=== PATIENT | male | born 1990 | race Caucasian/White ===

== ENCOUNTER 2016-09-18 14:54 | Emergency (ER) | payer SELFPAY ==
[~2016-09-18] VITALS: Ht 172.7 cm; Wt 61.5 kg
[~2016-09-18 14:54] MED LIST: PENI-82 PO
[2016-09-18 15:06] VITALS: BP 118/74; PULSE 81; TEMP 36.7; O2SAT 95; Ht 172.7 cm; Wt 61.5 kg
[2016-09-18] MEDS ORDERED: SULF800T23 PO (15:45)
[2016-09-18] MEDS ORDERED: AMOX875T PO (15:45)
[2016-09-18] MEDS ORDERED: ULT/50 PO (15:45)
--- NOTE | 2016-09-18 23:27 | EMERGENCY ROOM VISIT NOTE ---
History First contact with patient: 15:21 Chief Complaint: EAR PAIN Stated Complaint: GIANT LUMP BEHIND EAR, EARLOBE SWOLLEN WITH FLUID History of Present Illness The patient is a 26 year old male who presents to the Emergency Room with complaints of painful lump behind his left ear lobe. The patient has had several episodes like this in the past, stating that they will often enlarge significantly, break open, and then improved. The patient has a history of hidradenitis with nearly identical symptoms behind his right ear in the past. The patient required surgery to remove cysts behind his right ear due to the frequency of infection. The patient feels like he has an infection today. He is also complaining of pain of his left earlobe. He has not had fever or chills. He does not have injury or trauma. The ear canal itself is without discomfort. He rates his discomfort an 8/10. Review of Systems More than 10 systems were reviewed and otherwise negative with the exception of history of present illness. Past Medical/Surgical History Medical Problems: (1) Sialadenitis Family History Patient reports no known family medical history. Social History Smoking Status: Current Every Day Smoker Alcohol Use: none Drug Use: none Marital Status: single Housing Status: lives with family Occupation Status: employed Current/Historical Medications Scheduled Amoxicillin & Pot Clavulanate (Augmentin 875-125 mg), 1 TAB PO BID Sulfa/Trimethoprim (Bactrim Ds 800MG/160MG), 1 TAB PO BID Tramadol Hcl (Ultram), 50 MG PO Q8H Allergies Coded Allergies: BEE STING (Verified Allergy, Unknown, ANAPHYLAXIS, 09/18/16) Physical Exam Vital Signs Date Time Temp Pulse Resp B/P Pulse Ox O2 Delivery O2 Flow Rate FiO2 09/18/16 15:06 36.7 81 18 118/74 95 Room Air Pain Rating (0-10): 2.0 Physical Exam VITALS: Vitals are noted on the nurse's note and reviewed by myself. Vital signs stable. GENERAL: Well-developed, well-nourished, white male, who is in no acute distress and resting comfortably. Patient is cooperative with the examination. HEAD: Normocephalic atraumatic. EARS: Right external ear and canal are normal. Right TM is pearly. Left external ear is with an ovoid 2 x 1 cm fluctuant appearing abscess directly behind the ear as well as a small area of tenderness and fluctuance within the left earlobe itself. No mastoid tenderness bilateral. Left TM is pearly and appears normal. EYES: Pupils equal round and reactive to light and accommodation. Conjunctivae without injection, sclerae without icterus. Extraocular movements intact. MOUTH: Mucous membranes moist. Tonsils are not enlarged. Pharynx without erythema, blood, or exudate. Uvula midline. Airway patent. NECK: Supple without nuchal rigidity. No lymphadenopathy. No thyromegaly. Cervical spine is nontender. HEART: Regular rate and rhythm without murmurs gallops or rubs. LUNGS: Clear to auscultation bilaterally without wheezes, rales or rhonchi. No retractions or accessory muscle use. Medical Decision & Procedures Procedure I examined the patient. Verbal consent was obtained to perform the procedure. After saline and Betadine cleansing and ethyl chloride anesthesia, the abscess behind the left ear was incised with a 16-gauge needle. A large amount of purulent material was released with more expressed by pressure. A swab was obtained for culture. The abscess cavity was further probed with a needle class b driver and the deep pocket expressed. The abscess cavity was then copiously irrigated with sterile saline under pressure. The abscess within the left earlobe was incised with a 16-gauge needle. A small amount of purulent material was released with more expressed by pressure. The patient tolerated the procedure well. ED Course Physical exam and history were performed. Nursing notes and EMR were reviewed. Patient appears to have an abscess behind the left ear and of the left earlobe. These are very close in proximity, not even 1 cm apart. The patient has had several symptoms of this in the past. I discussed options of care with the patient, and elected to perform incision and drainage as above. The patient ultimately tolerated the procedure well and culture was sent to the lab. The patient will be started on Augmentin and Bactrim for his symptoms. He has seen a surgeon in the past, and I recommended that he contact them in the morning, as he will likely have recurrence of these abscesses. The patient was otherwise invited back to the ER with any new, worsening, or concerning symptoms. He voiced understanding and rated his discomfort a 3/10 at the time of departure. The chart was completed utilizing [employer] Voice Recognition Software. Grammatical errors, random word insertions, pronoun errors, and incomplete sentences are an occasional consequence of this system due to software limitations, ambient noise, and hardware issues. Any formal questions or concerns about the content, text, or information contained within the body of this dictation should be directly addressed to the provider for clarification. . Medical Decision Differential diagnosis: Etiologies such as cellulitis, abscess, MRSA infection, DVT, necrotizing fasciitis, dermatitis, drug eruption, as well as others were entertained.. Impression Primary Impression: Abscess of left earlobe Departure Information Dispostion Home / Self-Care Condition GOOD Prescriptions Tramadol Hcl (ULTRAM) 50 Mg Tab 50 MG PO Q8H for 3 Days, #9 TAB Prov: Napoleon Nugent PA-C 09/18/16 Sulfa/Trimethoprim (Bactrim Ds 800MG/160MG) Tab 1 TAB PO BID for 10 Days, #20 TAB Prov: Napoleon Nugent PA-C 09/18/16 Amoxicillin & Pot Clavulanate (Augmentin 875-125 mg) 1 Tab Tab 1 TAB PO BID for 10 Days, #20 TAB Prov: Napoleon Nugent PA-C 09/18/16 Forms WORK / SCHOOL INSTRUCTIONS, HOME CARE DOCUMENTATION FORM, IMPORTANT VISIT INFORMATION Patient Instructions My [facility] Additional Instructions You were seen and evaluated today on an emergency basis only. This is not a substitute for, or an effort to provide, complete comprehensive medical care. It is not possible to recognize and treat all injuries or illnesses in a single emergency department visit. For this reason it is recommended that you followup with your surgeon by telephone on Wednesday to arrange a follow-up appointment. You may need removal of your cysts for definitive care. For baseline pain relief you may alternate ibuprofen and acetaminophen every 4 hours for pain control. Take 600 mg ibuprofen (Advil) and then 4 hours later take 1000 mg acetaminophen (Tylenol). Do not take more than 3000 mg acetaminophen in a single day. Take tramadol 50 mg every 8 hours as needed for breakthrough pain. Do not drink or drive on this medication. Amoxicillin Clavulanate (Augmentin) 875mg: Take one pill twice daily for 10 days for your infection. All antibiotics can cause diarrhea. If this occurs and you feel worse or it does not resolve in 1-2 days follow up with your doctor or return to the Emergency Department as this could be signs of serious underlying problems. Any medication can cause an allergic reaction, stop the pills immediately and return to the ER for rash, hives, breathing difficulties, or swelling. Trimethoprim-Sulfamethoxazole(Bactrim DS): Take one pill twice daily for 10 days for your infection. All antibiotics can cause diarrhea. If this occurs and you feel worse or it does not resolve in 1-2 days follow up with your doctor or return to the Emergency Department as this could be signs of serious underlying problems. Any medication can cause an allergic reaction, stop the pills immediately and return to the ER for rash, hives, breathing difficulties, or swelling. You are welcome to return to the emergency department anytime with new, worsening, or concerning symptoms.
== END 2016-09-18 16:00 | disposition home or self-care (01) ==
LOC: C.EDB 14:55 → C.EDD 16:00
DX: H60.02 Abscess of left external ear (principal); F17.200 Nicotine dependence, unspecified, uncomplicated; Z79.899 Other long term (current) drug therapy; Z91.030 Bee allergy status

== ENCOUNTER 2017-06-25 10:02 | Emergency (ER) | payer SELFPAY ==
[~2017-06-25] VITALS: Ht 172.7 cm; Wt 65.9 kg
[2017-06-25 10:18] VITALS: TEMP 36.8; Ht 172.7 cm; Wt 65.9 kg
[2017-06-25 11:04] LABS: BASO % 0.3 %; BASO ABS # 0.02 K/uL (0-0.2); EOS % 1.8 %; EOS ABS # 0.13 K/uL (0-0.5); HEMATOCRIT 43.7 % (42-52); HEMOGLOBIN 15.5 g/dL (14.0-18.0); IG# 0.01 K/uL (0.00-0.02); LYMPH % 45.3 %; LYMPH ABS # 3.19 K/uL (1.2-3.4); MEAN CELL VOLUME 91.4 fL (80-100); MEAN CORPUSCULAR HEMOGLOBIN 32.4 pg (25-34); MEAN CORPUSCULAR HGB CONC 35.5 g/dl (32-36); MEAN PLATELET VOLUME 9.8 fL (7.4-10.4); MONO % 8.1 %; MONO ABS # 0.57 K/uL (0.11-0.59); NEUT % 44.4 %; NEUT ABS # 3.12 K/uL (1.4-6.5); PLATELET COUNT 209 K/uL (130-400); RED CELL DISTRIBUTION WIDTH CV 13.5 % (11.5-14.5); RED CELL DISTRIBUTION WIDTH SD 45.4 fL (36.4-46.3); WHITE BLOOD COUNT 7.04 K/uL (4.8-10.8)
[2017-06-25 11:20] LABS: ALKALINE PHOSPHATASE 112 U/L (45-117); ALT/SGPT 23 U/L (12-78); BLOOD UREA NITROGEN 10 mg/dl (7-18); CALCIUM 9.3 mg/dl (8.5-10.1); CARBON DIOXIDE 31 mmol/L (21-32); GLUCOSE 71 mg/dl (70-99); TOTAL PROTEIN 8.9 gm/dl (6.4-8.2)
[2017-06-25 11:23] LABS: POTASSIUM 4.5 mmol/L (3.5-5.1); SODIUM 134 mmol/L (136-145)
[2017-06-25 11:28] LABS: AST/SGOT 14 U/L (15-37)
[2017-06-25 11:33] LABS: CREATININE 0.85 mg/dl (0.60-1.40)
--- NOTE | 2017-06-25 12:12 | DIAGNOSTIC IMAGING REPORT ---
(TESTICULAR) SCROTUM-CONT CLINICAL HISTORY: 26 years-old Male with just below L scrotum mild erythema and induration . Acute left scrotal swelling COMPARISON STUDY: Pelvis CT 11/05/2015 TECHNIQUE: Real-time, grayscale, and color Doppler sonography of the testes and scrotum is performed. Images are reviewed in the transverse and longitudinal planes. FINDINGS: RIGHT HEMISCROTUM: The right testis measures 4.6 x 1.7 x 2.9 cm and the parenchyma appears unremarkable. No intratesticular mass is seen. Normal-appearing arterial inflow is present within the right testicle. The right epididymal head appears normal. No varicocele or hydrocele is identified. LEFT HEMISCROTUM: The left testis measures 4.3 x 2.2 x 3.1 cm and the parenchyma appears unremarkable. No intratesticular mass is seen. Normal-appearing arterial inflow is present within the left testicle. The left epididymal head appears normal. No varicocele or hydrocele is identified. Within the left lateral aspect of the scrotum there is a mildly complex hypoechoic area measuring up to 1.0 cm with additional hypoechoic area noted posterior to the left scrotum measuring up to 1.1 cm. Area of increased vascularity noted within this distribution. IMPRESSION: 1. Unremarkable sonographic appearance of the bilateral testicles without evidence of torsion or mass. 2. Focal complex areas of decreased echogenicity are seen within the left scrotal wall as above measuring up to 1.1 cm demonstrating increased vascularity suggesting phlegmon or developing abscess. Follow-up recommended. No large drainable fluid collections identified. The above report was generated using voice recognition software. It may contain grammatical, syntax or spelling errors. Electronically signed by: Julio Cleaning M.D. 06/25/2017 12:11 PM Dictated Date/Time: 06/25/2017 12:01 PM
[2017-06-25] MEDS ORDERED: SULF800T23 PO (12:42)
[2017-06-25] MEDS ORDERED: CEPH500C PO (12:42)
[2017-06-25] MEDS ORDERED: CEPHALEXIN MONOHYDRATE 250 MG CAP PO ONE (12:45)
[2017-06-25] MEDS ORDERED: SULFAMETHOXAZOLE/TRIMETHOPRIM DS 800/160MG TAB PO ONE (12:45)
[2017-06-25 13:04] VITALS: BP 122/80; PULSE 83; O2SAT 96
--- NOTE | 2017-06-25 14:30 | EMERGENCY ROOM VISIT NOTE ---
History Report prepared by Marcos: Luis Casillas Under the Supervision of: Dr. Tian Onofre D.O. First contact with patient: 10:19 Chief Complaint: EAR PAIN Stated Complaint: SEVERE EAR INFECTION, CYST ON TESTICLE History of Present Illness The patient is a 26 year old male who presents to the Emergency Room with complaints of constant, severe, left ear pain beginning 4 days ago. The patient states he has been trying to use home remedies for his pain, but they are not working. He reports he is also experiencing testicular pain where he had a cyst removed one year ago. The patient notes the cyst is back and will fill up and then pop. He states it has been causing his legs to chafe and continually pop the cyst. The patient reports when he gets an erection, it pulls his skin and causes it to worsen. He notes the testicle itself does not hurt, it is just the cyst. The patient denies cough, runny nose, fevers, vomiting, sorethroat, and urinary symptoms. Source of History: patient Onset: four days ago Position: ear (left) Symptom Intensity: severe Timing: constant Associated Symptoms: No fevers, No sorethroat, No cough, No vomiting, No urinary symptoms Note: Associated symptoms: cyst on his testicles Denies: runny nose Review of Systems See HPI for pertinent positives & negatives. A total of 10 systems reviewed and were otherwise negative. Past Medical & Surgical Medical Problems: (1) Sialadenitis Family History Patient reports no known family medical history. Social History Smoking Status: Current Every Day Smoker Alcohol Use: none Drug Use: none Marital Status: single Housing Status: lives with family Occupation Status: employed Current/Historical Medications Scheduled Cephalexin Monohydrate (Keflex), 500 MG PO TID Sulfamethoxazole-Trimethoprim (Bactrim Ds 800MG/160MG), 1 TAB PO BID Allergies Coded Allergies: BEE STING (Verified Allergy, Unknown, ANAPHYLAXIS, 06/25/17) Physical Exam Vital Signs Date Time Temp Pulse Resp B/P (MAP) Pulse Ox O2 Delivery O2 Flow Rate FiO2 06/25/17 13:04 83 18 122/80 96 06/25/17 11:22 103 18 129/79 99 Room Air 06/25/17 10:18 36.8 106 20 115/75 98 Room Air Physical Exam GENERAL: Sitting up in bed, alert, well appearing, well nourished, no distress, non-toxic EYE EXAM: normal conjunctiva. OROPHARYNX: no exudate, no erythema, lips, buccal mucosa, and tongue normal and mucous membranes are moist NECK: supple, no nuchal rigidity, no adenopathy, non-tender EARS: TMs clear bilaterally. LUNGS: Clear to auscultation. Normal chest wall mechanics HEART: Tachycardic rate. no murmurs, S1 normal and S2 normal ABDOMEN: abdomen soft, non-tender, normo-active bowel sounds, no masses, no rebound or guarding. BACK: Back is symmetrical on inspection and there is no deformity, no midline tenderness, no CVA tenderness. : Normal external genitalia. No testicular tenderness or redness. No penial discharge. 2x1 cm abscess which is draining with mild fullness and fluctuantes with erythema and white purulent discharge just posterior to the scrotum prior to the gluteal folds. SKIN: no rashes and no bruising UPPER EXTREMITIES: upper extremities are grossly normal. LOWER EXTREMITIES: No pitting edema. NEURO EXAM: Normal sensorium, cranial nerves II-XII grossly intact, normal speech, no gross weakness of arms, no gross weakness of legs. Medical Decision & Procedures ER Provider Diagnostic Interpretation: Radiology results as stated below per my review and the radiologist's interpretation: (TESTICULAR) SCROTUM-CONT CLINICAL HISTORY: 26 years-old Male with just below L scrotum mild erythema and induration . Acute left scrotal swelling COMPARISON STUDY: Pelvis CT 11/05/2015 TECHNIQUE: Real-time, grayscale, and color Doppler sonography of the testes and scrotum is performed. Images are reviewed in the transverse and longitudinal planes. FINDINGS: RIGHT HEMISCROTUM: The right testis measures 4.6 x 1.7 x 2.9 cm and the parenchyma appears unremarkable. No intratesticular mass is seen. Normal-appearing arterial inflow is present within the right testicle. The right epididymal head appears normal. No varicocele or hydrocele is identified. LEFT HEMISCROTUM: The left testis measures 4.3 x 2.2 x 3.1 cm and the parenchyma appears unremarkable. No intratesticular mass is seen. Normal-appearing arterial inflow is present within the left testicle. The left epididymal head appears normal. No varicocele or hydrocele is identified. Within the left lateral aspect of the scrotum there is a mildly complex hypoechoic area measuring up to 1.0 cm with additional hypoechoic area noted posterior to the left scrotum measuring up to 1.1 cm. Area of increased vascularity noted within this distribution. IMPRESSION: 1. Unremarkable sonographic appearance of the bilateral testicles without evidence of torsion or mass. 2. Focal complex areas of decreased echogenicity are seen within the left scrotal wall as above measuring up to 1.1 cm demonstrating increased vascularity suggesting phlegmon or developing abscess. Follow-up recommended. No large drainable fluid collections identified. The above report was generated using voice recognition software. It may contain grammatical, syntax or spelling errors. Electronically signed by: Julio Cleaning M.D. 06/25/2017 12:11 PM Dictated Date/Time: 06/25/2017 12:01 PM Laboratory Results 06/25/17 10:40 Red Blood Count 4.78, Mean Corpuscular Volume 91.4, Mean Corpuscular Hemoglobin 32.4, Mean Corpuscular Hemoglobin Concent 35.5, Mean Platelet Volume 9.8, Neutrophils (%) (Auto) 44.4, Lymphocytes (%) (Auto) 45.3, Monocytes (%) (Auto) 8.1, Eosinophils (%) (Auto) 1.8, Basophils (%) (Auto) 0.3, Neutrophils # (Auto) 3.12, Lymphocytes # (Auto) 3.19, Monocytes # (Auto) 0.57, Eosinophils # (Auto) 0.13, Basophils # (Auto) 0.02 06/25/17 10:40 Test 06/25/17 10:40 White Blood Count 7.04 K/uL (4.8-10.8) Red Blood Count 4.78 M/uL (4.7-6.1) Hemoglobin 15.5 g/dL (14.0-18.0) Hematocrit 43.7 % (42-52) Mean Corpuscular Volume 91.4 fL (80-100) Mean Corpuscular Hemoglobin 32.4 pg (25-34) Mean Corpuscular Hemoglobin Concent 35.5 g/dl (32-36) Platelet Count 209 K/uL (130-400) Mean Platelet Volume 9.8 fL (7.4-10.4) Neutrophils (%) (Auto) 44.4 % Lymphocytes (%) (Auto) 45.3 % Monocytes (%) (Auto) 8.1 % Eosinophils (%) (Auto) 1.8 % Basophils (%) (Auto) 0.3 % Neutrophils # (Auto) 3.12 K/uL (1.4-6.5) Lymphocytes # (Auto) 3.19 K/uL (1.2-3.4) Monocytes # (Auto) 0.57 K/uL (0.11-0.59) Eosinophils # (Auto) 0.13 K/uL (0-0.5) Basophils # (Auto) 0.02 K/uL (0-0.2) RDW Standard Deviation 45.4 fL (36.4-46.3) RDW Coefficient of Variation 13.5 % (11.5-14.5) Immature Granulocyte % (Auto) 0.1 % Immature Granulocyte # (Auto) 0.01 K/uL (0.00-0.02) Urine Color YELLOW Urine Appearance CLEAR (CLEAR) Urine pH 5.0 (4.5-7.5) Urine Specific Addison 1.018 (1.000-1.030) Urine Protein NEG (NEG) Urine Glucose (UA) NEG (NEG) Urine Ketones NEG (NEG) Urine Occult Blood NEG (NEG) Urine Nitrite NEG (NEG) Urine Bilirubin NEG (NEG) Urine Urobilinogen NEG (NEG) Urine Leukocyte Esterase NEG (NEG) Anion Gap 5.0 mmol/L (3-11) Est Creatinine Clear Calc Drug Dose 122.8 ml/min Estimated GFR () 139.4 Estimated GFR (Non- 120.3 BUN/Creatinine Ratio 11.7 (10-20) Calcium Level 9.3 mg/dl (8.5-10.1) Total Bilirubin 0.2 mg/dl (0.2-1) Direct Bilirubin < 0.1 mg/dl (0-0.2) Aspartate Amino Transf (AST/SGOT) 14 U/L (15-37) Alanine Aminotransferase (ALT/SGPT) 23 U/L (12-78) Alkaline Phosphatase 112 U/L (45-117) Total Protein 8.9 gm/dl (6.4-8.2) Albumin 4.0 gm/dl (3.4-5.0) Laboratory results per my review. Medications Administered Medications (Trade) Dose Ordered Sig/Kolby Route Start Time Stop Time Status Last Admin Dose Admin Cephalexin Monohydrate (Keflex Cap) 500 mg NOW ONCE PO 06/25/17 12:45 06/25/17 12:46 DC 06/25/17 12:52 500 MG Trimethoprim/ Sulfamethoxazole (Septra Ds 800/ 160MG Tab) 1 tab NOW ONCE PO 06/25/17 12:45 06/25/17 12:46 DC 06/25/17 12:52 1 TAB ED Course ED COURSE: Vital signs were reviewed and showed a tachycardic heart rate. The patients medical record was reviewed The above diagnostic studies were performed and reviewed. ED treatments and interventions as stated above. 1023: The patient was evaluated in room B08. A complete history and physical examination was performed. 1232: Upon reevaluation, the patient is resting comfortably. I discussed my findings with the patient and he understands and agrees with the treatment plan. He will be discharged after receiving medication. 1245: Ordered Trimethoprim/Sulfamethoxazole 1 tab PO, Keflex Cap 500 mg PO Based on the patients age, coexisting illnesses, exam and lab findings the decision to treat as an outpatient was made. The patient remained stable while under my care. The patient appeared well at the time of discharge. Medical Decision Differential diagnoses includes but is not limited to gastritis, peptic ulcer disease, GERD, gallbladder disease, pancreatitis, small bowel obstruction, acute coronary syndrome, pericarditis, ischemic bowel, irritable bowel disease, irritable bowel syndrome, appendicitis, diverticulitis, malignancy, hernia, urinary tract infection, torsion, perforation, trauma, infectious. Patient is a 26-year-old male who presents to ER for 2 complaints. His initial complaint is left ear pain. Bilateral TMs clear. He also complains of pain just inferior to his scrotum. On exam he does have a draining abscess. No fevers. He admits that he gets these fairly regularly. He has another area of fluctuance/drainage which has resolved on his left thigh. Labs show no significant leukocytosis. BMP all LFTs and bilirubin was unremarkable. UA was negative. Ultrasound confirms findings. Patient was placed on Bactrim and Keflex. He was discharged to follow-up with general surgery as an outpatient for his recurrent abscesses. He was given strict instructions to return for any worsening of his symptoms or anything to suggest possible worsening infection. Discussed with Pt concerning signs and symptoms to watch out for. Pt was instructed to follow up with their PCP and discussed with the patient their option to return to the ED at anytime for persistent or worsening symptoms. The appropriate anticipatory guidance and out-patient management, including indications for return to the emergency department, were explained at length to the patient and understood. Medication Reconcilliation Current Medication List: was personally reviewed by me Blood Pressure Screening Patient's blood pressure: Normal blood pressure Blood pressure disposition: Did not require urgent referral Impression Primary Impression: Abscess Scribe Attestation The scribe's documentation has been prepared under my direction and personally reviewed by me in its entirety. I confirm that the note above accurately reflects all work, treatment, procedures, and medical decision making performed by me. Departure Information Dispostion Home / Self-Care Prescriptions Cephalexin Monohydrate (Keflex) 500 Mg Cap 500 MG PO TID for 10 Days, #30 CAP Prov: Tian Onofre, DO 06/25/17 Sulfamethoxazole-Trimethoprim (Bactrim Ds 800MG/160MG) 1 Tab Tab 1 TAB PO BID, #20 TAB Prov: Tian Onofre, DO 06/25/17 Referrals No Doctor, Assigned (PCP) Forms HOME CARE DOCUMENTATION FORM, IMPORTANT VISIT INFORMATION, WORK / SCHOOL INSTRUCTIONS Patient Instructions Drainage Abscess, My [facility] Additional Instructions Please follow up with your primary care doctor with in the next 24 hours. Any worsening of your symptoms, please return to the ED immediately. This includes any fevers greater than 100.4, worsening pain, chest pain, shortness breath, persistent nausea, vomiting, unable to eat or drink, or any other concerning signs or symptoms from your standpoint. Please follow up with general surgery within the next 3 days. If you have any pain, redness or swelling within the scrotum or at the location of the abscess site which is worsening please return immediately to the ER. Please keep warm soaks/compresses this site as it continues to drain. Please take antibiotics as prescribed.
== END 2017-06-25 13:19 | disposition home or self-care (01) ==
LOC: C.EDB 10:04
DX: N45.4 Abscess of epididymis or testis (principal); H92.02 Otalgia, left ear; F17.200 Nicotine dependence, unspecified, uncomplicated

== ENCOUNTER 2017-08-19 16:40 | Emergency (ER) | payer SELFPAY ==
[~2017-08-19] VITALS: Ht 172.7 cm; Wt 61.0 kg
[2017-08-19 16:45] VITALS: TEMP 36.8; Ht 172.7 cm; Wt 61.0 kg
--- NOTE | 2017-08-19 17:27 | EMERGENCY ROOM VISIT NOTE ---
History First contact with patient: 17:10 Chief Complaint: THROAT PAIN/INJURY Stated Complaint: GIANT LUMP ON THROAT History of Present Illness The patient is a 26 year old male who presents to the Emergency Room with complaints of a possible abscess in the left side of the neck. The patient states he noticed a small lump approximately 3 weeks ago. He states overnight, the lump seemed to double or triple in size. He states he is having difficulty sleeping and eating. The patient has been taking ice and ibuprofen without improvement in his symptoms. He does have a history of sebaceous cysts over his body, and has had them surgically removed. He describes a chronic dental pain and dental caries for many years, and is a current smoker. The patient denies any obvious changes in his dental pain or experiencing any pain in one specific location within his mouth since this began. He denies any fever, but does report some chills. He denies any drainage from the wound. He denies any chest pain or difficulty breathing. Review of Systems A complete 10 point review of systems was reviewed with the patient with pertinent positives and negatives as per history of present illness. All else were negative. Past Medical/Surgical History Medical Problems: (1) Sialadenitis Family History Patient reports no known family medical history. Social History Smoking Status: Current Every Day Smoker Alcohol Use: none Drug Use: none Marital Status: single Housing Status: lives with family Occupation Status: employed Current/Historical Medications Scheduled Cephalexin Monohydrate (Keflex), 500 MG PO QID Sulfa/Trimethoprim (Bactrim Ds 800MG/160MG), 1 TAB PO BID Physical Exam Vital Signs Date Time Temp Pulse Resp B/P (MAP) Pulse Ox O2 Delivery O2 Flow Rate FiO2 08/19/17 19:37 100 16 112/81 99 Room Air 08/19/17 18:54 96 16 132/83 98 Room Air 08/19/17 17:37 108 18 122/82 97 Room Air 08/19/17 16:45 36.8 115 20 130/81 96 Room Air 08/19/17 16:45 96 Room Air Physical Exam VITALS: Vitals are noted on the nurse's note and reviewed by myself. Vital signs stable. GENERAL: This is a 26 year old white male, in no acute distress, nondiaphoretic , well-developed well-nourished. SKIN: The skin was without rashes, erythema, edema, or bruising. There is no tenting of the skin. Capillary reflex less than 2 seconds. HEAD: Normocephalic atraumatic. EARS: External auditory canals clear, tympanic membranes pearly soni without erythema or effusion bilaterally. EYES: Pupils equal round and reactive to light and accommodation. Conjunctivae without injection, sclerae without icterus. Extraocular movements intact. NOSE: Patent, turbinates without inflammation or discharge. No sinus tenderness. MOUTH: Mucous membranes moist. Tonsils are not enlarged. Pharynx without erythema or exudate. Uvula midline. Airway patent. Tongue does not deviate. Very poor dentition with multiple dental caries. NECK: Supple without nuchal rigidity. Mass noted in the left submandibular area. Uncertain if this is a lymphadenopathy or abscess. No thyromegaly. Cervical spine is nontender. No JVD. HEART: Regular rate and rhythm without murmurs gallops or rubs. LUNGS: Clear to auscultation bilaterally without wheezes, rales or rhonchi. No dullness to percussion. No retractions or accessory muscle use. MUSCULOSKELETAL: No muscle atrophy, erythema, or edema noted. Full range of motion without joint tenderness in all extremities. No tenderness to palpation. Normal gait. Strength 5/5 throughout. NEURO: Patient was alert and oriented to person place and time. Normal sensation to light and sharp touch. Deep tendon reflexes 2+ throughout. No focal neurological deficits. Medical Decision & Procedures ER Provider Diagnostic Interpretation: SOFT TISSUE NECK WITH CLINICAL HISTORY: 26 years-old Male presenting with possible abscess, left submandibular area. TECHNIQUE: Multidetector CT of the neck was performed after the administration of intravenous contrast. IV contrast: 94 mL of Optiray 320. A dose lowering technique was used consistent with the principles of ALARA (as low as reasonably achievable). COMPARISON: None. CT DOSE (mGy.cm): The estimated cumulative dose is 375.13 mGy.cm. FINDINGS: Manager Drug topogram: Unremarkable. Aerated secretions in the nasal cavity and nasopharynx. Prominence of adenoidal lymphoid tissue. Mild mucosal thickening in the left maxillary sinus. Ostiomeatal units and nasofrontal ethmoidal recesses patent. Rightward nasal septal deviation with bony spurring. Perforation of the anterior nasal septum. Extensive dental caries at the right mandibular first and second molar. Periapical lucency noted at the right mandibular first and second molar. Dental caries also suggested in the bilateral third mandibular molars. No significant inflammatory change along the buccal mucosa. No evidence of an odontogenic abscess. No cervical lymphadenopathy. Patent vasculature. Lung apices clear. Osseous structures normal. Limited intracranial evaluation within normal limits. IMPRESSION: 1. Perforation of the nasal septum could imply chronic nasal ingestion of medication. 2. Extensive aerated secretions in the nasal cavity and nasopharynx. 3. Extensive dental caries and periapical lucencies/abscesses at the right mandibular first and second molars. Dental caries also noted elsewhere. No evidence of odontogenic abscess. Electronically signed by: Marco A Ngo M.D. 08/19/2017 7:00 PM Dictated Date/Time: 08/19/2017 6:54 PM Laboratory Results 08/19/17 17:37 Red Blood Count 4.13, Mean Corpuscular Volume 90.6, Mean Corpuscular Hemoglobin 31.5, Mean Corpuscular Hemoglobin Concent 34.8, Mean Platelet Volume 9.8, Neutrophils (%) (Auto) 65.3, Lymphocytes (%) (Auto) 24.9, Monocytes (%) (Auto) 8.8, Eosinophils (%) (Auto) 0.7, Basophils (%) (Auto) 0.1, Neutrophils # (Auto) 5.48, Lymphocytes # (Auto) 2.09, Monocytes # (Auto) 0.74, Eosinophils # (Auto) 0.06, Basophils # (Auto) 0.01 08/19/17 17:37 Test 08/19/17 17:37 08/19/17 18:00 White Blood Count 8.40 K/uL (4.8-10.8) Red Blood Count 4.13 M/uL (4.7-6.1) Hemoglobin 13.0 g/dL (14.0-18.0) Hematocrit 37.4 % (42-52) Mean Corpuscular Volume 90.6 fL (80-100) Mean Corpuscular Hemoglobin 31.5 pg (25-34) Mean Corpuscular Hemoglobin Concent 34.8 g/dl (32-36) Platelet Count 167 K/uL (130-400) Mean Platelet Volume 9.8 fL (7.4-10.4) Neutrophils (%) (Auto) 65.3 % Lymphocytes (%) (Auto) 24.9 % Monocytes (%) (Auto) 8.8 % Eosinophils (%) (Auto) 0.7 % Basophils (%) (Auto) 0.1 % Neutrophils # (Auto) 5.48 K/uL (1.4-6.5) Lymphocytes # (Auto) 2.09 K/uL (1.2-3.4) Monocytes # (Auto) 0.74 K/uL (0.11-0.59) Eosinophils # (Auto) 0.06 K/uL (0-0.5) Basophils # (Auto) 0.01 K/uL (0-0.2) RDW Standard Deviation 43.1 fL (36.4-46.3) RDW Coefficient of Variation 12.9 % (11.5-14.5) Immature Granulocyte % (Auto) 0.2 % Immature Granulocyte # (Auto) 0.02 K/uL (0.00-0.02) Anion Gap 5.0 mmol/L (3-11) Est Creatinine Clear Calc Drug Dose 120.7 ml/min Estimated GFR () 142.9 Estimated GFR (Non- 123.3 BUN/Creatinine Ratio 6.9 (10-20) Calcium Level 8.9 mg/dl (8.5-10.1) Total Bilirubin 0.6 mg/dl (0.2-1) Aspartate Amino Transf (AST/SGOT) 6 U/L (15-37) Alanine Aminotransferase (ALT/SGPT) 12 U/L (12-78) Alkaline Phosphatase 96 U/L (45-117) Total Protein 8.0 gm/dl (6.4-8.2) Albumin 3.6 gm/dl (3.4-5.0) Globulin 4.4 gm/dl (2.5-4.0) Albumin/Globulin Ratio 0.8 (0.9-2) Lactic Acid Level 0.8 mmol/L (0.4-2.0) Medications Administered Medications (Trade) Dose Ordered Sig/Kolby Route Start Time Stop Time Status Last Admin Dose Admin Trimethoprim/ Sulfamethoxazole (Septra Ds 800/ 160MG Tab) 1 tab NOW STAT PO 08/19/17 19:17 08/19/17 19:20 DC 08/19/17 19:24 1 TAB Cephalexin Monohydrate (Keflex Cap) 500 mg NOW STAT PO 08/19/17 19:17 08/19/17 19:20 DC 08/19/17 19:24 500 MG Dexamethasone Sodium Phosphate (Dexamethasone Inj Pf) 8 mg NOW STAT IV 08/19/17 19:17 08/19/17 19:20 DC 08/19/17 19:24 8 MG ED Course The patient was seen and evaluated as above. IV access obtained, labs drawn. CT of the soft tissues of the neck with IV contrast was performed. This was reviewed by myself and radiologist as above. Lab workup was reviewed. I discussed the findings with the patient at bedside. I discussed the case with Dr. Onofre, who recommends discharge on antibiotics with outpatient follow-up. The patient was given IV Decadron, p.o. Bactrim, and p.o. Keflex. Discharge instructions reviewed, the patient was discharged home in good condition. Medical Decision This is a 26-year-old male significant past medical history for sebaceous cyst and abscesses. The patient states he has never had one in his neck, but is concerned that that is what the swelling is related to. The patient does have very poor dental hygiene, and has multiple dental caries. While here, the patient presents with an obvious swelling/mass in the left submandibular area. CT scan was nonspecific for mass in this area. The patient is afebrile and there is no leukocytosis, however the patient is mildly anemic. He was encouraged to monitor for signs or symptoms of bleeding. The patient's electrolytes, renal, and hepatic function were without significant abnormalities. I suspect an early, possibly developing abscess versus lymphadenitis of the left submandibular node. The patient will be treated with p.o. antibiotics and will be given a dose of Decadron while here in the emergency department for swelling. The patient was encouraged to follow-up outpatient with his surgeon to discuss possible drainage if needed, and he was given strict return precautions for if the swelling worsens. The patient was agreeable to the assessment and plan. All questions were answered to the patient's satisfaction. Differential diagnosis includes abscess, lymphadenopathy, malignancy, cellulitis , dental abscess, odontalgia, Ceferino's angina, cervicalgia, musculoskeletal, metabolic or endocrine etiology, and others. Medication Reconcilliation Current Medication List: was personally reviewed by me Blood Pressure Screening Patient's blood pressure: Normal blood pressure Impression Primary Impression: Abscess Departure Information Dispostion Home / Self-Care Condition GOOD Prescriptions Sulfa/Trimethoprim (Bactrim Ds 800MG/160MG) Tab 1 TAB PO BID for 10 Days, #20 TAB Prov: Laura Arriaga PA-C 08/19/17 Cephalexin Monohydrate (Keflex) 500 Mg Cap 500 MG PO QID for 10 Days, #40 CAP Prov: Laura Arriaga PA-C 08/19/17 Referrals No Doctor, Assigned (PCP) Patient Instructions ED Cellulitis Facial, My [facility] Additional Instructions He was seen in the emergency department for what is presumed to be an abscess of the left submandibular area. Cephalexin(Keflex) 500mg: Take one pill four times daily for 10 days for your skin infection. All antibiotics can cause diarrhea. If this occurs and you feel worse or it does not resolve in 1-2 days follow up with your doctor or return to the Emergency Department as this could be signs of serious underlying problems. Any medication can cause an allergic reaction, stop the pills immediately and return to the ER for rash, hives, breathing difficulties, or swelling. Trimethoprim-Sulfamethoxazole(Bactrim DS): Take one pill twice daily for 10 days for your skin infection. All antibiotics can cause diarrhea. If this occurs and you feel worse or it does not resolve in 1-2 days follow up with your doctor or return to the Emergency Department as this could be signs of serious underlying problems. Any medication can cause an allergic reaction, stop the pills immediately and return to the ER for rash, hives, breathing difficulties, or swelling. As discussed, your labs and CT scan did not show obvious large abscess or fluid collection, however I suspect it is early on. Ibuprofen(Motrin, Advil) may be used for fever or pain. Use 600mg every six hours as needed. Take with food. Avoid using more than 2400mg in a 24 hour period. Do not use 2400mg per day for more than three consecutive days without physician direction. Prolonged inappropriate use can lead to stomach upset or ulcers. (AND/OR) Acetaminophen(Tylenol) may be used for fever or pain. Use 1000mg every six hours as needed. Avoid using more than 3000mg in a 24 hour period. Use warm, moist compresses to help with discomfort and swelling. Please monitor for worsening redness, swelling, difficulty breathing, fever, chills, systemic symptoms, or drainage. If these occur, return immediately to the emergency department. Please follow-up with your general surgeon for reevaluation in 2-3 days.
[2017-08-19 18:00] LABS: BASO % 0.1 %; BASO ABS # 0.01 K/uL (0-0.2); EOS % 0.7 %; EOS ABS # 0.06 K/uL (0-0.5); HEMATOCRIT 37.4 % (42-52); IG# 0.02 K/uL (0.00-0.02); LYMPH % 24.9 %; LYMPH ABS # 2.09 K/uL (1.2-3.4); MEAN CELL VOLUME 90.6 fL (80-100); MEAN CORPUSCULAR HEMOGLOBIN 31.5 pg (25-34); MEAN CORPUSCULAR HGB CONC 34.8 g/dl (32-36); MEAN PLATELET VOLUME 9.8 fL (7.4-10.4); MONO % 8.8 %; MONO ABS # 0.74 K/uL (0.11-0.59); NEUT % 65.3 %; NEUT ABS # 5.48 K/uL (1.4-6.5); PLATELET COUNT 167 K/uL (130-400); RED CELL DISTRIBUTION WIDTH CV 12.9 % (11.5-14.5); RED CELL DISTRIBUTION WIDTH SD 43.1 fL (36.4-46.3)
[2017-08-19 18:17] LABS: ALBUMIN 3.6 gm/dl (3.4-5.0); CALCIUM 8.9 mg/dl (8.5-10.1); CREATININE 0.8 mg/dl (0.60-1.40); POTASSIUM 3.5 mmol/L (3.5-5.1)
[2017-08-19] MEDS ORDERED: OPTIRAY 320 IV PRN (19:00)
--- NOTE | 2017-08-19 19:01 | DIAGNOSTIC IMAGING REPORT ---
SOFT TISSUE NECK WITH CLINICAL HISTORY: 26 years-old Male presenting with possible abscess, left submandibular area. TECHNIQUE: Multidetector CT of the neck was performed after the administration of intravenous contrast. IV contrast: 94 mL of Optiray 320. A dose lowering technique was used consistent with the principles of ALARA (as low as reasonably achievable). COMPARISON: None. CT DOSE (mGy.cm): The estimated cumulative dose is 375.13 mGy.cm. FINDINGS: Sash Assembler topogram: Unremarkable. Aerated secretions in the nasal cavity and nasopharynx. Prominence of adenoidal lymphoid tissue. Mild mucosal thickening in the left maxillary sinus. Ostiomeatal units and nasofrontal ethmoidal recesses patent. Rightward nasal septal deviation with bony spurring. Perforation of the anterior nasal septum. Extensive dental caries at the right mandibular first and second molar. Periapical lucency noted at the right mandibular first and second molar. Dental caries also suggested in the bilateral third mandibular molars. No significant inflammatory change along the buccal mucosa. No evidence of an odontogenic abscess. No cervical lymphadenopathy. Patent vasculature. Lung apices clear. Osseous structures normal. Limited intracranial evaluation within normal limits. IMPRESSION: 1. Perforation of the nasal septum could imply chronic nasal ingestion of medication. 2. Extensive aerated secretions in the nasal cavity and nasopharynx. 3. Extensive dental caries and periapical lucencies/abscesses at the right mandibular first and second molars. Dental caries also noted elsewhere. No evidence of odontogenic abscess. Electronically signed by: Marco A Ngo M.D. 08/19/2017 7:00 PM Dictated Date/Time: 08/19/2017 6:54 PM
[2017-08-19] MEDS ORDERED: SULFAMETHOXAZOLE/TRIMETHOPRIM DS 800/160MG TAB PO STA (19:17)
[2017-08-19] MEDS ORDERED: DEXAMETHASONE **PF** INJ 10 MG/ML VIAL IV STA (19:17)
[2017-08-19] MEDS ORDERED: CEPHALEXIN MONOHYDRATE 250 MG CAP PO STA (19:17)
[2017-08-19] MEDS ORDERED: SULF800T23 PO (19:20)
[2017-08-19] MEDS ORDERED: CEPH500C PO (19:20)
[2017-08-19 19:37] VITALS: BP 112/81; PULSE 100; O2SAT 99
== END 2017-08-19 19:45 | disposition home or self-care (01) ==
LOC: C.EDB 16:41 → C.EDD 19:45
DX: K04.7 Periapical abscess without sinus (principal); K02.9 Dental caries, unspecified; J34.89 Other specified disorders of nose and nasal sinuses

== ENCOUNTER 2017-08-26 15:13 | Emergency (ER) | payer SELFPAY ==
[~2017-08-26] VITALS: Ht 172.7 cm; Wt 59.5 kg
[~2017-08-26 15:13] MED LIST changes: +CEPH500C PO; -PENI-82 PO; +SULF800T23 PO
[2017-08-26 15:18] VITALS: TEMP 36.8; Ht 172.7 cm; Wt 59.5 kg
[2017-08-26] MEDS ORDERED: OXYCODONE HCL IR 5 MG TAB (IMMEDIATE RELEASE) PO STA (15:56)
[2017-08-26 16:28] LABS: BASO % 0.1 %; BASO ABS # 0.01 K/uL (0-0.2); EOS % 1.1 %; HEMATOCRIT 39.4 % (42-52); HEMOGLOBIN 14.3 g/dL (14.0-18.0); IG# 0.03 K/uL (0.00-0.02); LYMPH % 17.9 %; MEAN CELL VOLUME 90.4 fL (80-100); MEAN CORPUSCULAR HEMOGLOBIN 32.8 pg (25-34); MEAN CORPUSCULAR HGB CONC 36.3 g/dl (32-36); MEAN PLATELET VOLUME 9.2 fL (7.4-10.4); MONO % 7.8 %; MONO ABS # 0.74 K/uL (0.11-0.59); NEUT % 72.8 %; NEUT ABS # 6.93 K/uL (1.4-6.5); PLATELET COUNT 263 K/uL (130-400); RED CELL DISTRIBUTION WIDTH SD 43.1 fL (36.4-46.3); WHITE BLOOD COUNT 9.51 K/uL (4.8-10.8)
[2017-08-26 16:51] LABS: ALBUMIN 3.6 gm/dl (3.4-5.0); CALCIUM 9.5 mg/dl (8.5-10.1); CREATININE 1.03 mg/dl (0.60-1.40); POTASSIUM 3.9 mmol/L (3.5-5.1)
[2017-08-26 16:53] LABS: TOTAL PROTEIN 9.2 gm/dl (6.4-8.2)
--- NOTE | 2017-08-26 17:56 | DIAGNOSTIC IMAGING REPORT ---
L EXTREMITY NONVASCULAR LIMITED HISTORY: 26 years-old Male L sided neck swelling acute left-sided neck swelling COMPARISON: CT soft tissue neck 08/19/2017 TECHNIQUE: Multiple real-time sonographic images of the left 70 to the tissues were obtained assessing grayscale appearance and color flow. FINDINGS: Within the area of concern within the left submandibular region subcutaneous and deep tissue edema is noted with a heterogeneous hypoechoic collection measuring up to 2.8 x 2.7 x 2.7 cm. Increased vascularity is noted peripherally. IMPRESSION: 2.8 cm heterogeneous hypoechoic collection of the left submandibular tissues suggests abscess. The above report was generated using voice recognition software. It may contain grammatical, syntax or spelling errors. Electronically signed by: Julio Cleaning M.D. 08/26/2017 5:55 PM Dictated Date/Time: 08/26/2017 5:52 PM
[2017-08-26] MEDS ORDERED: CLINDAMYCIN 600 MG/54 ML D5W IV STA (18:13)
--- NOTE | 2017-08-26 19:53 | EMERGENCY ROOM VISIT NOTE ---
History First contact with patient: 15:21 Chief Complaint: ALLERGIC REACTION Stated Complaint: SWOLLEN GLAND - CHANGE MEDS Nursing Triage Summary: Pt. reports left sided gland swelling x1 week. States he was seen here on 08/19 and given two antibiotics, but they have been ineffective. Reports throat pain and difficulty swallowing. History of Present Illness The patient is a 26 year old male who presents to the Emergency Room with complaints of "swollen gland,". The patient states that he was seen here back on August 19 for swelling on the left side of his face, just below the left jawline. He states he was placed on Keflex and Bactrim. He notes that he has been taking the Keflex and Bactrim without relief. The swelling has increased. He has taken ibuprofen without relief of the pain. He rates the overall pain as a 5/10. He denies injecting any drugs in this region. Review of Systems A complete 10-point Review of Systems was discussed with the patient, with pertinent positives and negatives listed in the History of Present Illness. All remaining Review of Systems questions can be considered negative unless otherwise specified. Past Medical/Surgical History Medical Problems: (1) Sialadenitis Family History Patient reports no known family medical history. Social History Smoking Status: Current Every Day Smoker Alcohol Use: none Drug Use: none Marital Status: single Housing Status: lives with family Occupation Status: employed Current/Historical Medications Scheduled Cephalexin Monohydrate (Keflex), 500 MG PO QID Sulfa/Trimethoprim (Bactrim Ds 800MG/160MG), 1 TAB PO BID Physical Exam Vital Signs Date Time Temp Pulse Resp B/P (MAP) Pulse Ox O2 Delivery O2 Flow Rate FiO2 08/27/17 01:50 97 98 08/27/17 01:35 94 99 08/27/17 01:30 136/76 08/27/17 01:20 105 98 08/27/17 01:10 121/75 08/27/17 01:00 121/75 08/27/17 00:50 96 99 08/27/17 00:45 107 99 Room Air 08/27/17 00:44 118/79 08/26/17 22:52 100 20 132/81 99 Room Air 08/26/17 20:58 93 20 115/80 99 Room Air 08/26/17 19:18 92 20 135/86 98 Room Air 08/26/17 18:27 94 16 126/79 98 Room Air 08/26/17 16:43 104 18 115/73 98 08/26/17 16:01 98 Room Air 08/26/17 15:18 36.8 123 18 111/70 97 Room Air Physical Exam VITAL SIGNS - Vital signs and nursing notes were reviewed. Stable. GENERAL -26-year-old male appearing his stated age who is in no acute distress. Communicates well with provider and answers questions appropriately. SKIN - Without rashes. No petechial rashes. HEAD - NC/AT. EYES - PERRL with EOMI bilaterally. EARS - No deformities of external structures noted on gross examination bilaterally. External auditory canals without discharge or otorrhea. Tympanic membranes pearly soni without retraction or bulging. No fluid or purulent material visualized behind the TM. Handle of malleus, umbo, cone of light, pars tensa/flaccid all easily visualized. NOSE - Midline and without cyanosis. No epistaxis or purulent drainage noted. MOUTH/OROPHARYNX - Without perioral cyanosis. Mild trismus and poor dentition noted. NECK - Neck with FROM. There is exquisite tenderness and edema noted to the left submandibular region of the patient's neck. It is firm and tender to palpation. Minimal fluctuance. LUNGS - Chest wall symmetric without accessory muscle use, intercostals retractions, or central cyanosis. Normal vesicular breath sounds CTA B/L. No wheezes, rales, or rhonchi appreciated. CARDIAC - RRR with S1/S2. No murmur, rubs, or gallops appreciated. Medical Decision & Procedures ER Provider Diagnostic Interpretation: L EXTREMITY NONVASCULAR LIMITED HISTORY: 26 years-old Male L sided neck swelling acute left-sided neck swelling COMPARISON: CT soft tissue neck 08/19/2017 TECHNIQUE: Multiple real-time sonographic images of the left 70 to the tissues were obtained assessing grayscale appearance and color flow. FINDINGS: Within the area of concern within the left submandibular region subcutaneous and deep tissue edema is noted with a heterogeneous hypoechoic collection measuring up to 2.8 x 2.7 x 2.7 cm. Increased vascularity is noted peripherally. IMPRESSION: 2.8 cm heterogeneous hypoechoic collection of the left submandibular tissues suggests abscess. The above report was generated using voice recognition software. It may contain grammatical, syntax or spelling errors. Electronically signed by: Julio Cleaning M.D. 08/26/2017 5:55 PM Dictated Date/Time: 08/26/2017 5:52 PM Laboratory Results 08/26/17 16:01 Red Blood Count 4.36, Mean Corpuscular Volume 90.4, Mean Corpuscular Hemoglobin 32.8, Mean Corpuscular Hemoglobin Concent 36.3, Mean Platelet Volume 9.2, Neutrophils (%) (Auto) 72.8, Lymphocytes (%) (Auto) 17.9, Monocytes (%) (Auto) 7.8, Eosinophils (%) (Auto) 1.1, Basophils (%) (Auto) 0.1, Neutrophils # (Auto) 6.93, Lymphocytes # (Auto) 1.70, Monocytes # (Auto) 0.74, Eosinophils # (Auto) 0.10, Basophils # (Auto) 0.01 08/26/17 16:01 Test 08/26/17 16:01 White Blood Count 9.51 K/uL (4.8-10.8) Red Blood Count 4.36 M/uL (4.7-6.1) Hemoglobin 14.3 g/dL (14.0-18.0) Hematocrit 39.4 % (42-52) Mean Corpuscular Volume 90.4 fL (80-100) Mean Corpuscular Hemoglobin 32.8 pg (25-34) Mean Corpuscular Hemoglobin Concent 36.3 g/dl (32-36) Platelet Count 263 K/uL (130-400) Mean Platelet Volume 9.2 fL (7.4-10.4) Neutrophils (%) (Auto) 72.8 % Lymphocytes (%) (Auto) 17.9 % Monocytes (%) (Auto) 7.8 % Eosinophils (%) (Auto) 1.1 % Basophils (%) (Auto) 0.1 % Neutrophils # (Auto) 6.93 K/uL (1.4-6.5) Lymphocytes # (Auto) 1.70 K/uL (1.2-3.4) Monocytes # (Auto) 0.74 K/uL (0.11-0.59) Eosinophils # (Auto) 0.10 K/uL (0-0.5) Basophils # (Auto) 0.01 K/uL (0-0.2) RDW Standard Deviation 43.1 fL (36.4-46.3) RDW Coefficient of Variation 13.0 % (11.5-14.5) Immature Granulocyte % (Auto) 0.3 % Immature Granulocyte # (Auto) 0.03 K/uL (0.00-0.02) Erythrocyte Sedimentation Rate 83 mm/hr (0-14) Anion Gap 5.0 mmol/L (3-11) Est Creatinine Clear Calc Drug Dose 91.5 ml/min Estimated GFR () 115.7 Estimated GFR (Non- 99.8 BUN/Creatinine Ratio 11.4 (10-20) Calcium Level 9.5 mg/dl (8.5-10.1) Total Bilirubin 0.2 mg/dl (0.2-1) Aspartate Amino Transf (AST/SGOT) 8 U/L (15-37) Alanine Aminotransferase (ALT/SGPT) 14 U/L (12-78) Alkaline Phosphatase 101 U/L (45-117) C-Reactive Protein 11.00 mg/dl (0-0.29) Total Protein 9.2 gm/dl (6.4-8.2) Albumin 3.6 gm/dl (3.4-5.0) Globulin 5.6 gm/dl (2.5-4.0) Albumin/Globulin Ratio 0.6 (0.9-2) Lyme Disease IgG Antibody NEG (NEG) Lyme Disease IgM Antibody NEG (NEG) Medications Administered Medications (Trade) Dose Ordered Sig/[place]ol[place] Route Start Time Stop Time Status Last Admin Dose Admin Oxycodone HCl (Roxicodone Immediate Rel Tab) 5 mg NOW STAT PO 08/26/17 15:56 08/26/17 15:57 DC 08/26/17 16:21 5 MG Clindamycin Phosphate (Cleocin 600mg/ 54ml D5W) 600 mg ONE STAT IV 08/26/17 18:13 08/26/17 18:15 DC 08/26/17 18:29 600 MG Sodium Chloride 1,000 ml @ 999 mls/hr Q1H1M STAT IV 08/26/17 19:57 08/26/17 20:57 DC 08/26/17 20:09 999 MLS/HR Morphine Sulfate (MoRPHine SULFATE INJ) 4 mg NOW STAT IV 08/26/17 19:57 08/26/17 19:58 DC 3/8/18 20:08 4 MG Morphine Sulfate (MoRPHine SULFATE INJ) 2 mg NOW STAT IV 08/26/17 22:53 08/26/17 22:54 DC 08/26/17 22:59 2 MG Morphine Sulfate (MoRPHine SULFATE INJ) 2 mg NOW STAT IV 08/27/17 01:02 08/27/17 01:04 DC 08/27/17 01:09 2 MG Medical Decision Patient was seen and evaluated as above. He presents to us today with left- sided facial/neck swelling. After obtaining a thorough history and physical examination the above work up was performed. No leukocytosis. Inflammatory markers were elevated. Ultrasound reveals likely abscess of 2.8 cm. I did call the oral maxillofacial group however they are not on-call tonight and are not in the area but do request transfer to a facility with oral maxillofacial. I then called the ear nose and throat surgeon who requests transfer of the patient as well. I then called [facility] who noted that he would have to go to [place]. I then called [facility] which is next closest and spoke with Dr. Perez and Dr. Treviño. They accepted the patient for transfer. He will go via ambulance. While here he was given oxycodone as well as clindamycin. He was transferred in stable condition. He did require morphine during his stay for pain and was made NPO. It is important to note that upon the patient's presentation I did extensively review his previous visit. The CT scan did not reveal any edema in this region. I am concerned that given its location this could be mumps. This was prior to obtaining the ultrasound. I did utilize precaution and did have testing performed to evaluate for mumps. It was after the abscess was identified on ultrasound that this diagnosis was considered certainly less likely. On exam the region is near the parotid gland and was not fluctuant on exam. Case was discussed with the attending physician In the evaluation and treatment of this patient the following differential diagnoses were entertained: Abscess, mumps, cellulitis, thrombus, among others. Impression Primary Impression: Abscess Departure Information Referrals Marco A Darnell M.D. (PCP) Patient Instructions My [facility]
[2017-08-26] MEDS ORDERED: MoRPHine SULFATE 4 MG/ML 1 ML CARP\\VIAL IV STA (19:57)
[2017-08-26] MEDS ORDERED: SODIUM CHLORIDE 0.9% 1000ML 1,000 ML IV STA (19:57)
[2017-08-26] MEDS ORDERED: MoRPHine SULFATE 2 MG/ML CARP IV STA (22:53)
[2017-08-27] MEDS ORDERED: MoRPHine SULFATE 2 MG/ML CARP IV STA (01:02)
[2017-08-27] MEDS ORDERED: MoRPHine SULFATE 2 MG/ML CARP IV PRN (01:15)
[2017-08-27 01:30] VITALS: BP 136/76
[2017-08-27 01:50] VITALS: PULSE 97; O2SAT 98
== END 2017-08-27 01:53 | disposition short-term general hospital (02) ==
LOC: C.EDB 15:15 → C.EDA 08-27 01:53
DX: L02.01 Cutaneous abscess of face (principal); F17.200 Nicotine dependence, unspecified, uncomplicated